=== PATIENT | male | born 1955 | race Caucasian/White ===

== ENCOUNTER → 2021-01-24 14:28 | Outpatient (CLI) | payer MEDICARE, BC, SELFPAY ==
--- NOTE | 2021-01-24 14:32 | DI.ECHO.S_ITS ---
[place] [facility]---------+ [facility] +---------+ : : [address] : [address] : : : : [phone] : : : : Phone: [phone]---------+ Echocardiogram Report + + :Name: JERAMY CLIFTON Study Date: 01/24/2021 Height: 70 in : :[facility] ReadingLocation: Weight: 220 lb : : Gender: Male BSA: 2.2 m2 : :: 1955 Age: 65 yrs BP: 140/80 mmHg: :Reason For Study: Abnormal ECG : :Ordering Physician: STEPHY, : :KAITY Encarnacion Performed By: Reyes Guerra : :Referring: KAITY KEYES : + + Interpretation Summary Normal left ventricle size with ejection fraction 55-60%. Normal right ventricle and both atria. No significant valvular abnormality. Procedure: A two-dimensional transthoracic echocardiogram with color flow and Doppler was performed. The study quality was technically adequate. There is no prior echocardiogram noted for this patient. The patient was in sinus rhythm with heart rates between 52-64 bpm during the exam. Left Ventricle: The left ventricle is normal in size and wall thickness. Left ventricular systolic function is normal. The ejection fraction is estimated to be 55-60%. There are no focal wall motion abnormalities. Diastolic parameters suggest probable normal left ventricular diastolic function and normal filling pressures. Right Ventricle: The right ventricle is normal in size and function. Atria: Both atria are normal in size. There is no Doppler evidence for an interatrial shunt. Mitral Valve: The mitral valve is normal in structure and function. There is no mitral regurgitation noted. Aortic Valve: The aortic valve is normal in structure and function. No aortic regurgitation is present. Tricuspid Valve: The tricuspid valve is normal in structure and function. There is a trace or physiologic amount of tricuspid regurgitation. Pulmonary artery pressures cannot be estimated because of the lack of a measurable TR jet velocity. Pulmonic Valve: The pulmonic valve is not well seen, but is grossly normal. There is no pulmonic valvular regurgitation. Great Vessels: The aortic root is normal size. The ascending aorta could not be visualized. The inferior vena cava was not visualized. Pericardium/ Pleura There is no pericardial effusion. There is no pleural effusion. MMode/2D Measurements & Calculations LVIDd: 5.2 cm LVOT diam: 2.2 cm LVIDs: 3.6 cm Ao root diam: 3.8 cm FS: 30.2 % IVSd: 0.84 cm LVPWd: 0.80 cm LV huitron. diameter/BSA (cm/m^2): 2.4 LV sys. diameter/BSA (cm/m^2): 1.7 LA A2 area: 16.8 cm2 RA long axis: 4.0 cm LA A4 area: 12.5 cm2 RA area: 13.6 cm2 LA length (vol): 4.9 cm RA vol: 39.3 ml LA vol: 36.5 ml RA : 18.1 ml/m2 LA vol index: 16.8 ml/m2 RVD1 (basal): 2.7 cm TAPSE: 2.6 cm Doppler Measurements & Calculations Ao V2 max: 157.5 cm/sec LVOT Max Justin: 94.7 cm/sec Ao V2 mean: 108.6 cm/sec LV V1 max P.6 mmHg Ao max P.9 mmHg LV V1 VTI: 20.8 cm Ao mean P.2 mmHg YOVANA(I,D): 2.5 cm2 Ao V2 VTI: 30.6 cm YOVANA(V,D): 2.2 cm2 sev ratio: 0.68 YOVANA indexed to BSA (cm^2/m^2): 1.2 MV E max justin: 64.0 cm/sec PA pr(Accel): 38.5 mmHg MV A max justin: 81.3 cm/sec MV E/A: 0.79 Med Peak E' Justin: 9.4 cm/sec E/E' med: 6.8 Lat Peak E' Justin: 11.6 cm/sec E/E' lat: 5.5 E/e' average: 6.2 MV dec time: 0.20 sec SV(LVOT): 76.5 ml Electronically signed by: Bev Hay on Reading Physician:01/24/2021 06:00 PM
== END ==
PROVIDERS: PCP Nurse Practitioner Family; Referring Provider Nurse Practitioner Family; Visit Provider Nurse Practitioner Family
DX: R94.31 Abnormal electrocardiogram [ECG] [EKG] (principal); I49.9 Cardiac arrhythmia, unspecified
CPT/HCPCS: 93306

== ENCOUNTER → 2024-12-25 13:24 | Outpatient (CLI) | payer MEDICARE, BC, SELFPAY ==
--- NOTE | 2024-12-25 13:27 | DI.MRI.S_ITS ---
PROCEDURE: MR HEAD/BRAIN WO/W CON INDICATIONS: OCULAR MIGRAINE,RIGHT ARM WEAKNESS,COGNITIVE CHG TECHNIQUE: Noncontrast axial T1 spin echo, axial T2 fast spin echo, sagittal and axial FLAIR, coronal T2 fast spin echo, axial gradient echo, axial diffusion and ADC through the brain. After the administration of contrast, axial and coronal and sagittal T1 spin echo with fat saturation through the brain. COMPARISON: None. FINDINGS: Image quality: Excellent. CSF spaces: Basal cisterns are patent. No extra-axial fluid collections. Ventricles are normal in size and shape. Brain: No midline shift. No intracranial bleeds or masses. No abnormal intracranial enhancement. There is cerebral volume loss for age. There is periventricular white matter chronic small vessel ischemic change. The brainstem appears normal. Diffusion-weighted images demonstrate no acute infarct. No chronic ischemic insults. Normal intravascular flow voids are present. Skull and face: Calvarial marrow is normal in signal. Orbits appear normal. Note is made of bilateral lens replacements. Sinuses: There is moderate mucosal thickening within the maxillary sinuses and the ethmoid air cells. No abnormal fluid is seen within the mastoid air cells. IMPRESSION: No imaging explanation is found for this patient's presenting symptoms. No masses or abnormal enhancement can be seen. Paranasal sinus disease noted. Dictated by: Abhinav Skinner M.D. on 12/25/2024 at 16:31 Approved by: Abhinav Skinner M.D. on 12/25/2024 at 16:32
== END ==
PROVIDERS: PCP Physician Assistant; Referring Provider Student in an Organized Health Care Education/Training Program; Visit Provider Student in an Organized Health Care Education/Training Program
DX: G43.109 Migraine with aura, not intractable, without status migrainosus (principal); R29.898 Other symptoms and signs involving the musculoskeletal system; R41.89 Other symptoms and signs involving cognitive functions and awareness; J32.8 Other chronic sinusitis
CPT/HCPCS: 70553; A9579